=== PATIENT | male | born 1955 | race Caucasian/White ===

== ENCOUNTER 2020-06-02 16:03 | Emergency (ER) | payer BC ==
[2020-06-02] MEDS ORDERED: Diphtheria,Pertussis(Acell),Tetanus Vaccine 0.5 ML Syringe IM ONE (16:23)
--- NOTE | 2020-06-02 16:30 | EDM.PDOC ---
ED HPI GENERAL MEDICAL PROBLEM - General Chief Complaint: Laceration Stated Complaint: CUT ON LT FINGER Time Seen by Provider: 06/02/20 16:12 - History of Present Illness INITIAL COMMENTS - FREE TEXT/NARRATIVE: History of present illness: Patient presents with a laceration to his left lateral fifth digit after slipping with a icebox worker type knife and cutting the finger. He denies any other injuries bleeding is under control tetanus is not up-to-date no other complaints no other concerns nothing makes it better or worse happened just prior to arrival Review of systems: As per history of present illness and below otherwise all systems reviewed and negative. Past medical history: As per history of present illness and as reviewed below otherwise noncontributory. Surgical history: As per history of present illness and as reviewed below otherwise noncontributory. Social history: No reported history of drug or alcohol abuse. Family history: As per history of present illness and as reviewed below otherwise nonc ontributory. Physical exam: HEENT: Atraumatic, normocephalic, pupils reactive, negative for conjunctival pallor or scleral icterus, mucous membranes moist, throat clear, neck supple, nontender, trachea midline. Lungs: Clear to auscultation, breath sounds equal bilaterally, chest nontender. Heart: S1S2, regular, negative for clicks, rubs, or JVD. Abdomen: Soft, nondistended, nontender. Negative for masses or hepatosplenomegaly. Negative for costovertebral tenderness. Pelvis: Stable nontender. Genitourinary: Deferred. Rectal: Deferred. Extremities: Atraumatic, negative for cords or calf pain. Neurovascular unremarkable. There is a 4 cm avulsion type laceration to the lateral aspect of the fifth digit bleeding controlled noncontaminated. Neuro: Awake, alert, oriented. Cranial nerves II through XII unremarkable. Cerebellum unremarkable. Motor and sensory unremarkable throughout. Exam nonfocal. Diagnostics: [] Therapeutics: [] Impression: [] Plan: We will anesthetize finger clean the wound and suture. [] Definitive disposition and diagnosis as appropriate pending reevaluation and review of above. left hand Pain Score (Numeric/FACES): 1 - Related Data Allergies Allergy/AdvReac Type Severity Reaction Status Date / Time No Known Allergies Allergy Verified 06/02/20 16:17 Home Meds: Home Meds . [No Known Home Meds] 06/02/20 [History] Past Medical History - Past Health History Medical/Surgical History: Denies Medical/Surgical History - Infectious Disease History Infectious Disease History: Reports: Chicken Pox Social & Family History - Family History Family Medical History: Noncontributory - Tobacco Use Smoking Status *Q: Never Smoker - Recreational Drug Use Recreational Drug Use: No ED ROS GENERAL - Review of Systems Review Of Systems: See Below ED EXAM, SKIN/RASH Exam: See Below Course - Vital Signs Text/Narrative:: Procedure: 4 cm laceration to the left lateral fifth digit avulsion style was partial-thickness bleeding controlled noncontaminated distal cap refill sensation and motor intact it was explored no foreign bodies no tendon injury was noted. It was sutured using 4-0 nylon suture there were 8 simple interrupted sutures placed no complications patient tolerated procedure well Last Recorded V/S: Last Vital Signs Temp 36.4 C 06/02/20 16:18 Pulse 95 06/02/20 16:18 Resp 18 06/02/20 16:18 BP 137/63 06/02/20 16:18 Pulse Ox 96 06/02/20 16:18 - Orders/Labs/Meds Orders: Active Orders 24 hr Category Date Time Status Vaccines to be Administered [RC] PER UNIT ROUTINE Care 06/02/20 16:23 Active Meds: Medications Discontinued Medications Generic Name Dose Route Start Last Admin Trade Name Maurisio PRN Reason Stop Dose Admin Bacitracin 1 dose 06/02/20 16:32 06/02/20 16:34 Bacitracin Oint 1 Gm TOP 06/02/20 16:33 1 dose ONETIME ONE Administration Diphtheria/Tetanus/Acell Pertussis 0.5 ml 06/02/20 16:23 06/02/20 16:32 Adacel IM 06/02/20 16:24 0.5 ml .ONCE ONE Administration Lidocaine HCl 10 ml 06/02/20 16:22 06/02/20 16:32 Xylocaine-Mpf 1% INJECT 06/02/20 16:23 10 ml ONETIME ONE Administration Departure - Departure Time of Disposition: 17:02 Disposition: Home, Self-Care 01 Preliminary Cause of *Q: Cardiac Arrest Condition: Good Clinical Impression: Laceration - Discharge Information *PRESCRIPTION DRUG MONITORING PROGRAM REVIEWED*: Not Applicable *COPY OF PRESCRIPTION DRUG MONITORING REPORT IN PATIENT BARB: Not Applicable Instructions: Laceration Care, Adult, [id number] Referrals: PCP,None [Primary Care Provider] - Forms: ED Department Discharge Additional Instructions: The following information is given to patients seen in the emergency department who are being discharged to home. This information is to outline your options for follow-up care. We provide all patients seen in our emergency department with a follow-up referral. The need for follow-up, as well as the timing and circumstances, are variable depending upon the specifics of your emergency department visit. If you don't have a primary care physician on staff, we will provide you with a referral. We always advise you to contact your personal physician following an emergency department visit to inform them of the circumstance of the visit and for follow-up with them and/or the need for any referrals to a consulting specialist. The emergency department will also refer you to a specialist when appropriate. This referral assures that you have the opportunity for follow-up care with a specialist. All of these measure are taken in an effort to provide you with optimal care, which includes your follow-up. Under all circumstances we always encourage you to contact your private physician who remains a resource for coordinating your care. When calling for follow-up care, please make the office aware that this follow-up is from your recent emergency room visit. If for any reason you are refused follow-up, please contact the [facility] Emergency Department at and asked to speak to the emergency department charge nurse. Return to the ED in 10 days for suture removal return earlier for signs of infection. Sepsis Event Note (ED) - Evaluation Sepsis Screening Result: No Definite Risk - Focused Exam Vital Signs: Vital Signs Temp Pulse Resp BP Pulse Ox 06/02/20 16:18 36.4 C 95 18 137/63 96 - My Orders Last 24 Hours: My Active Orders 06/02/20 16:23 Vaccines to be Administered [RC] PER UNIT ROUTINE - Assessment/Plan Last 24 Hours: My Active Orders 06/02/20 16:23 Vaccines to be Administered [RC] PER UNIT ROUTINE
[2020-06-02] MEDS ORDERED: Bacitracin Oint 1 GM U/D Packet TOP ONE (16:32)
== END 2020-06-02 17:12 | disposition home or self-care (01) ==
LOC: MW.ED 16:03
DX: S61.217A Laceration without foreign body of left little finger without damage to nail, initial encounter (principal); Z23 Encounter for immunization; W27.8XXA Contact with other nonpowered hand tool, initial encounter
CPT/HCPCS: 12002; 90471; 90715; 99282; J2001